=== PATIENT | female | born 1995 | race Caucasian/White ===

== ENCOUNTER 2018-04-03 15:07 | Emergency (ER) | payer OTHER ==
[~2018-04-03] VITALS: Ht 154.9 cm; Wt 72.6 kg
--- OUTSIDE RECORDS SUMMARY | ~2018-04-03 | XMS | Clinical Summary ---
Demographics + + + | Address | [address] | | | [place] [address] | + + + | Home Phone | | + + + | Preferred Language | Unknown | + + + | Marital Status | Single | + + + | Hoahaoism Affiliation | Unknown | + + + | Race | Unknown | + + + | Ethnic Group | Unknown | + + + Author + + + | Author | [facility] | | | and [place] | + + + | Organization | [facility] | | | and [place] | + + + | Address | Unknown | + + + | Phone | Unavailable | + + + Care Team Providers + +------+ + | Care Motor Builder Winder Name | Role | Phone | + +------+ + PP | Unavailable | + +------+ + Allergies Not on File Current Medications Not on file Active Problems Not on file Social History + +-------+ +--------+------+ | Tobacco Use | Types | Packs/Day | Years | Date | | | | | Used | | + +-------+ +--------+------+ | Never Assessed | | | | | + +-------+ +--------+------+ + + + | Sex Assigned at | Date Recorded | | | | + + + | Not on file | | + + + Plan of Treatment + + + + + | Health Maintenance | Due Date | Last Done | Comments | + + + + + | Vaccine: HPV (1 of 3 | | | | | - Female 3-dose | 4 | | | | series) | | | | + + + + + | Vaccine: | | | | | Dtap/Tdap/Td (1 - | 2 | | | | Tdap) | | | | + + + + + | Cervical Cancer | | | | | Screening (Pap) | 4 | | | + + + + + | Vaccine: Influenza | | | | | (#1) | 8 | | | + + + + + Results Not on filefrom Last 3 Months"
[~2018-04-03 15:07] MED LIST: AMOX TR-K CLV1 EAC1 PO; IBUPROFEN800 MG PO; ONDANSETRON ODT8 MG PO; OXYCODONE-ACET1 EAC1 PO
[2018-04-03] MEDS ORDERED: IBUPROFEN200 MG PO (15:18)
== END 2018-04-03 15:22 | disposition home or self-care (01) ==
LOC: ED 15:07
DX: M25.562 Pain in left knee (principal)

== ENCOUNTER 2024-06-07 08:58 | Emergency (ER) | payer OTHER ==
[~2024-06-07] VITALS: Ht 154.9 cm; Wt 78.0 kg
[~2024-06-07 08:58] MED LIST changes: +IBUPROFEN200 MG PO
[2024-06-07] MEDS ORDERED: HYDROmorphone HCL 1 MG/ML SYR IV PRN (09:30)
[2024-06-07] MEDS ORDERED: SODIUM CHLORIDE 0.9% 1,000 ML IV ONE (09:30)
[2024-06-07 09:46] LABS: BASOPHILS 0.9 % (0-2); EOSINOPHILS 1.1 % (0-6); HEMATOCRIT 45.5 % (35.0-50.0); HEMOGLOBIN 15.4 g/dL (12.0-18.0); MCH 34.2 (27-36); MCHC 33.9 g/dl (30-36); MCV 101.1 fl (81-99); MONOCYTES 6.9 % (0-12); NEUTROPHILS 79.1 % (39-80); PLATELET COUNT 332 K/uL (140-440); RDW 15.4 (10.5-15.0)
[2024-06-07 09:52] LABS: ANION GAP 13.9 (7-21); BILIRUBIN, TOTAL 1.3 ng/dL (0.2-1.0); BUN/CREATININE RATIO 6.59 (6.0-28.6); CALCIUM 9.3 mg/dL (8.5-10.1); CREATININE, SERUM 0.91 mg/dL (0.55-1.02); POTASSIUM 3.9 mmol/L (3.5-5.1)
[2024-06-07 10:06] LABS: LACTIC ACID, BLOOD 0.9 mmol/L (0.4-2.0)
[2024-06-07 11:06] LABS: BILIRUBIN, URINE NEGATIVE (negative); BLOOD/HGB, URINE LARGE (Negative); KETONE, URINE NEGATIVE (Negative); LEUK ESTERASE, URINE NEGATIVE (negative); NITRITE, URINE POSITIVE (negative)
[2024-06-07 11:13] LABS: BACTERIA, URINE 3+ /hpf (negative); CASTS, URINE NONE SEEN \\lpf; COLLECTION TYPE, URINE CLEAN CATCH; CRYSTALS, URINE NONE SEEN (0-1+); REFLEX CULTURE, URINE No (No)
[2024-06-07 12:09] LABS: BILIRUBIN, URINE NEGATIVE (negative); BLOOD/HGB, URINE SMALL (Negative); KETONE, URINE NEGATIVE (Negative); LEUK ESTERASE, URINE NEGATIVE (negative); NITRITE, URINE NEGATIVE (negative); PH, URINE 5.5 (5-7)
[2024-06-07 12:16] LABS: BACTERIA, URINE 1+ /hpf (negative); CASTS, URINE NONE SEEN \\lpf; COLLECTION TYPE, URINE CLEAN CATCH; CRYSTALS, URINE NONE SEEN (0-1+); RED BLOOD CELLS, URINE 0-1 /hpf (0-5); REFLEX CULTURE, URINE No (No); WHITE BLOOD CELLS, URINE 0-1 /HPF (0-5)
[2024-06-07] MEDS ORDERED: HYDROCODON-ACE1 EA10 PO (12:36)
[2024-06-07 12:45] VITALS: BP 125/77
== END 2024-06-07 12:45 | disposition home or self-care (01) ==
LOC: ED 08:58
PROVIDERS: Emergency Medicine
DX: R10.30 Lower abdominal pain, unspecified (principal); R74.8 Abnormal levels of other serum enzymes; M54.50 Low back pain, unspecified; F17.200 Nicotine dependence, unspecified, uncomplicated; Z97.5 Presence of (intrauterine) contraceptive device
CPT/HCPCS: 36415; 74177; 80053; 81001; 83605; 83690; 84703; 85025; 87077; 87088; 87186; 96374; 99284-25; J1171; J7030; Q9967